=== PATIENT | female | born 1945 | race Caucasian/White ===

== ENCOUNTER 2016-11-28 17:53 | Inpatient (IN) | payer MEDICARE ==
[~2016-11-28] VITALS: Ht 162.6 cm; Wt 96.8 kg
[2016-11-28 17:56] VITALS: BP 151/98; PULSE 83; RESP 16; TEMP 98.7; O2SAT 94
[2016-11-28] MEDS ORDERED: FISH1000 (18:11)
[2016-11-28] MEDS ORDERED: ASPI81CH CHEW (18:11)
[2016-11-28] MEDS ORDERED: POTA2.5T (18:11)
[2016-11-28] MEDS ORDERED: FURO20TA PO (18:11)
[2016-11-28] MEDS ORDERED: MULTTAB24 PO (18:11)
[2016-11-28] MEDS ORDERED: ETOD500T PO (18:11)
[2016-11-28] MEDS ORDERED: METO50TA PO (18:11)
[2016-11-28] MEDS ORDERED: CHOL5000 PO (18:11)
[2016-11-28] MEDS ORDERED: BENA25TA6 PO (18:11)
[2016-11-28] MEDS ORDERED: LACTATED RINGER'S 1000 ML INJ 1,000 ML IV ONE (18:15)
--- NOTE | 2016-11-28 18:15 | PD ---
HPI Chief Complaint: Musculoskeletal Complaint Time Seen by Provider: 18:10 Travel History International Travel<30 days: No Contact w/Intl Traveler<30days: No Traveled to known affect area: No History of Present Illness HPI Patient is a 71-year-old female who presents to emergency room for evaluation by hand surgery for left hand digit #5 infection. Patient reports that she woke up yesterday morning and noticed an swelling and pain to her left hand digit # 5. Patient was seen at urgent care center this morning, she was then seen by Dr. Jean hand surgery this afternoon and was told to go to the emergency room for an I&D. Dr. Jean will perform I&D at bedside. Patient reports that she is currently on antibiotics. Tetanus is not up to date. PFSH Past Medical History Arthritis: Yes Cancer: Yes (BREAST ) Hypertension: Yes Social History Alcohol Use: Yes Tobacco Use: No Substance Use: No Allergies-Medications (Allergen,Severity, Reaction): Coded Allergies: Keflex (Verified Allergy, Severe, SYNCOPE, 11/28/16) Penicillin (Verified Allergy, Severe, RASH, 11/28/16) Sulfamethoxazole (Verified Allergy, Severe, SYNCOPE, 11/28/16) Triamterene (Verified Allergy, Severe, SYNCOPE, 11/28/16) Reported Meds & Prescriptions Reported Meds & Active Scripts Active Reported Aspirin 81 Mg Chew 81 Mg CHEW DAILY Benadryl Allergy (Diphenhydramine HCl) 25 Mg Tablet 1 Tab PO DAILY Furosemide 20 Mg Tab 20 Mg PO DAILY Etodolac 500 Mg Tab 1 Tab PO DAILY Metoprolol Tartrate 50 Mg Tab 50 Mg PO DAILY Vitamin D3 (Cholecalciferol) 5,000 Unit Cap 5,000 Units PO DAILY Potassium Gluconate 550 Mg Tab Fish Oil ([place]-3 Fatty Acids) 1,000 Mg Cap Multi For Her (Multiple Vitamins W/ Minerals) 1 Tab Tab 1 Tab PO DAILY Review of Systems General / Constitutional: No: Fever Eyes: No: Visual changes HENT: No: Headaches Cardiovascular: No: Chest Pain or Discomfort Respiratory: No: Shortness of Breath Gastrointestinal: No: Abdominal Pain Genitourinary: No: Dysuria Musculoskeletal: No: Pain Skin: Positive Other (left finger hand infection), No Rash Neurologic: No: Weakness Psychiatric: No: Depression Endocrine: No: Polydipsia Hematologic/Lymphatic: No: Easy Bruising Physical Exam Narrative GENERAL: Well-nourished, well-developed patient. SKIN: Focused skin assessment warm/dry. HEAD: Normocephalic. EYES: No scleral icterus. No injection or drainage. NECK: Supple, trachea midline. No JVD or lymphadenopathy. CARDIOVASCULAR: Regular rate and rhythm without murmurs, gallops, or rubs. RESPIRATORY: Breath sounds equal bilaterally. No accessory muscle use. GASTROINTESTINAL: Abdomen soft, non-tender, nondistended. MUSCULOSKELETAL: No cyanosis, or edema. left hand: patient with infection/ abscess to left hand digit #5 dorsal surface of digit #5 BACK: Nontender without obvious deformity. No CVA tenderness. Data Data Last Documented VS Vital Signs Date Time Temp Pulse Resp B/P Pulse Ox O2 Delivery O2 Flow Rate FiO2 11/28/16 17:56 98.7 83 16 151/98 94 Orders Iv Access Insert/Monitor (11/28/16 18:15) Tetanus/Diphtheria Tox Adult (Tetanus/Di (11/28/16 18:30) Lidocaine 2% Inj (Xylocaine 2% Inj) (11/28/16 18:47) Basic Metabolic Panel (Bmp) (11/28/16 18:58) Complete Blood Count With Diff (11/28/16 18:58) Admit Order (Ed Use Only) (11/28/16 18:58) MDM Medical Decision Making Medical Screen Exam Complete: Yes Emergency Medical Condition: Yes Interpretation(s) Vital Signs Date Time Temp Pulse Resp B/P Pulse Ox O2 Delivery O2 Flow Rate FiO2 11/28/16 17:56 98.7 83 16 151/98 94 Differential Diagnosis left hand digit #5 infection/abscess Narrative Course Patient is a 71 year old female with left hand digit #5 infection/abscess - patient was sent to the ER by Dr. Jean who will meet patient and perform I&D. Patient is currently on antibiotics - tetanus is not up to date, will update tetanus Dr. Jean was notified once patient arrived to ER Dr. Jean in ER performing I&D, request cbc, bmp, request admission for 23 hour observation over night Diagnosis Primary Impression: Infected finger Admitting Information Admitting Physician Requests: Observation Jennifer López DO Nov 28, 2016 18:15
[2016-11-28] MEDS ORDERED: TETANUS/DIPHTHERIA TOXOID ADULT 0.5 ML VIAL IM ONE (18:30)
[2016-11-28] MEDS ORDERED: LIDOCAINE HCL 2% 50 ML VIAL ONE (18:47)
[2016-11-28] MEDS ORDERED: LACTATED RINGER'S 1000 ML INJ 500 ML IV SCH (19:30)
[2016-11-28 19:40] VITALS: BP 148/79; PULSE 87; RESP 16; O2SAT 99
[2016-11-28] MEDS ORDERED: VANCOMYCIN INJ 1,000 MG in SODIUM CHLOR 0.9% 250 ML INJ 250 ML IV SCH (19:45)
[2016-11-28] MEDS ORDERED: Vancomycin Consult Pharmacy 1 EA OTHER SCH (19:45)
[2016-11-28] MEDS ORDERED: ACETAMINOPHEN/HYDROcodone 325 MG/5 MG TAB PO PRN (19:45)
[2016-11-28 19:50] LABS: AUTOMATED NEUTROPHIL # 3.7 TH/MM3 (1.8-7.7); BASOPHIL % 0.4 % (0.0-2.0); EOSINOPHIL # 0.3 TH/MM3 (0-0.4); EOSINOPHIL % 4.1 % (0.0-4.0); HEMATOCRIT 39.7 % (35.0-46.0); HEMO FLAGS DIFF FINAL; LYMPH % 26.9 % (9.0-44.0); LYMPHOCYTE # 1.7 TH/MM3 (1.0-4.8); MEAN CELL VOLUME 87.5 FL (80.0-100.0); MEAN CORPUSCULAR HEMOGLOBIN 29.5 PG (27.0-34.0); MEAN CORPUSCULAR HGB CONC 33.8 % (32.0-36.0); MONO % 8.9 % (0.0-8.0); NEUT % 59.7 % (16.0-70.0); PLATELET COUNT 179 TH/MM3 (150-450); RED BLOOD COUNT 4.53 MIL/MM3 (4.00-5.30); RED CELL DISTRIBUTION WIDTH 15.1 % (11.6-17.2); WHITE BLOOD COUNT 6.3 TH/MM3 (4.0-11.0)
[2016-11-28 19:51] LABS: POTASSIUM 3.9 MEQ/L (3.5-5.1)
[2016-11-28] MEDS: ACETAMINOPHEN/HYDROcodone 325 MG/5 MG TAB PO PRN (19:53)
[2016-11-28 19:54] LABS: BICARBONATE 29.3 MEQ/L (21.0-32.0)
[2016-11-28] MEDS ORDERED: VANCOMYCIN INJ 1,000 MG in SODIUM CHLOR 0.9% 250 ML INJ 250 ML IV ONE (20:00)
[2016-11-28] MEDS: LEVOFLOXACIN 500 MG TAB PO SCH (20:33)
[2016-11-28 20:40] VITALS: BP 154/87; PULSE 78; RESP 16; O2SAT 99
[2016-11-29] VITALS: BP 158/86; PULSE 79; RESP 18; TEMP 97.5; O2SAT 74; O2SAT 94
[2016-11-29] MEDS: LACTATED RINGER'S 1000 ML INJ 1,000 ML IV SCH ×3 (05:34→22:38)
[2016-11-29] MEDS: ACETAMINOPHEN/HYDROcodone 325 MG/5 MG TAB PO PRN ×2 (06:51→17:12)
[2016-11-29 08:00] VITALS: BP 181/101; PULSE 72; RESP 16; TEMP 97.5; O2SAT 95
[2016-11-29] MEDS: LEVOFLOXACIN 500 MG TAB PO SCH (08:12)
[2016-11-29] MEDS: FUROSEMIDE 20 MG TAB PO SCH (08:12)
[2016-11-29] MEDS: METOPROLOL TARTRATE 50 MG TAB PO SCH (08:12)
[2016-11-29] MEDS: VANCOMYCIN 1,000 MG/NS 250 ML IV SCH ×4 (08:13→22:33)
[2016-11-29] MEDS: POTASSIUM CHLORIDE 10 MEQ CONTROLLED RELEASE TAB PO SCH (08:13)
[2016-11-29] MEDS: CHOLECALCIFEROL (VIT D3) 5000 UNIT CAP PO SCH (08:28)
[2016-11-29 12:00] VITALS: BP 166/87; PULSE 64; RESP 16; TEMP 97.9; O2SAT 95
--- NOTE | 2016-11-29 13:05 | MP ---
cc: SAVAGE HOPSON M.D. DATE OF PROCEDURE 11/28/2016 PREOPERATIVE DIAGNOSIS Left small finger infection, probably septic distal interphalangeal joint with mucous cyst. POSTOPERATIVE DIAGNOSIS Left small finger infection, probably septic distal interphalangeal joint with mucous cyst. PROCEDURE Incision and drainage, irrigation debridement left small finger distal interphalangeal joint. ANESTHESIA Local. TOURNIQUET TIME Approximately 20 minutes. INDICATIONS Ms. Sahni is a pleasant 71-year-old lady with symptomatic infection of her left small finger, appears to have a mucous cyst on the dorsum of the finger at the PIP joint with infection. She is in the [place] ED and gives written consent. PROCEDURE Proper written consent was obtained. Sterile prep of the base of the left small finger with alcohol and I did a digital block of the left small finger with 10 mL of 2% lidocaine. Her left hand and forearm were prepped and draped in the usual sterile fashion with Hibiclens and a sterile finger glove placed at the base of left small finger where it remained as a tourniquet. An oblique incision was made over the dorsal ulnar aspect of the left small finger DIP joint and thick skin flaps were elevated. The joint did appear to have some hypertrophic synovium and but no obvious pus. I opened the joint and debrided the redundant synovium with the rongeur and cultured the joint and debrided the subcutaneous area where there appeared to be a cyst with the rongeur. I irrigated the wound and joint thoroughly with 1 liter of normal saline and closed this with one 5-0 nylon suture proximally and then packed open the joint in the subcutaneous areas with a 1/4-inch Iodoform gauze. A bulky finger dressing was applied with 4x4s and 3-inch Bradley with the tourniquet being removed after approximately 20 minutes. The finger pinked up immediately. The patient remained in the emergency room and will be admitted for IV antibiotics and we will obtain infectious disease consultation. MD GRIFFIN Christianson/SSB /7:53 PM /1:00 PM
[2016-11-29 16:00] VITALS: BP 142/77; PULSE 66; RESP 16; TEMP 97.2; O2SAT 95
--- NOTE | 2016-11-29 16:41 | MB ---
cc: NAJMA FAM MD DATE OF CONSULTATION 11/29/[address] Jean REASON FOR CONSULTATION Infected left fifth finger HISTORY OF PRESENT ILLNESS This is a 71-year-old white female who presented to the emergency department after she developed swelling and pain at the left fifth finger. The patient states that she woke up and suddenly noticed swelling and she developed pain of the left digit number five. The patient states that a couple days prior she felt a little pimple on the dorsum of digit number five which she scraped with her other hand. She was evaluated in the emergency department by Dr. Jean of hand surgery and she was taken to surgery for incision and debridement of her finger. The report of the procedure noted that the joint did appear to have some hypertrophic synovium but no obvious pus. Culture was taken from the wound. The patient has no acute complaints. She denies nausea, vomiting, fever, chills or shortness of breath. She is ALLERGIC TO MULTIPLE ANTIBIOTICS. She is currently on intravenous vancomycin and p.o. Levaquin. PAST MEDICAL HISTORY 1. Arthritis, 2. Hypertension, 3. History of breast cancer 4. History of venostasis ulcers ALLERGIES SULFAMETHOXAZOLE PENICILLIN KEFLEX TRIAMTERENE MEDICATIONS 1. Vancomycin. 2. Levaquin 3. Vitamin D3. 4. Potassium. 5. Lasix. 6. Lopressor. 7. Victoria five p.r.n. SOCIAL HISTORY No tobacco. The patient drinks alcohol socially. No illicit drugs. FAMILY HISTORY Noncontributory. REVIEW OF SYSTEMS Negative on 10-point review. PHYSICAL EXAMINATION GENERAL: This is a moderately obese female who is in no acute distress. She is awake, alert and oriented. VITAL SIGNS: signs: Temperature 97.9, BP 166/87, respirations 16, heart rate 64. HEENT: Head is atraumatic. Extraocular movements grossly intact, pupils reactive to light. No icterus. No conjunctival erythema. Oropharynx moist mucosa without lesions. No thrush. NECK: Supple without adenopathy. LUNGS: Clear breath sounds HEART: Regular S1-S2 without murmurs, rubs or gallops. ABDOMEN: Bowel sounds present, soft, no tenderness appreciated. RECTAL: Not performed. EXTREMITIES: The left fifth finger is wrapped in a surgical dressing. There is obvious visible swelling. The remaining digits are intact. There is mild edema at the base of the left digit number five. NEUROLOGIC: No gross focal findings. PSYCHIATRIC: The patient is calm and cooperative. LABORATORY DATA WBC 6.3, platelet count 179, hemoglobin 13.4, creatinine 0.68, estimated GFR 86, sodium 141 IMPRESSION 1. Left fifth digit infection and septic DIP joint. 2. Multiple antibiotic allergies. RECOMMENDATIONS 1. Monitor wound cultures 2. Continue vancomycin 3. Continue Levaquin. Antibiotic determination will depend upon the culture results. Because of her allergies to several antibiotics, if she has MRSA she will require treatment with IV vancomycin. If she has gram-negative bacteria that is sensitive to Levaquin, we can treat her with oral Levaquin. However, we will need to get results of the cultures before making the final determination. Thank you this consultation. The patient's progress will be monitored. Further recommendations will be given upon followup. She will need at least a 2-week course of antibiotics. Najma Fam MD FD/ /3:34 PM /4:37 PM
--- NOTE | 2016-11-29 17:26 | PD.ORT.PN ---
Subjective Post Op Day #: 1 Pain Scale: minimal Subjective Remarks feels alot better today--minimal pain Range of Motion able to move finger left small with minimal pain today Objective Vitals Vital Signs Date Time Temp Pulse Resp B/P Pulse Ox O2 Delivery O2 Flow Rate FiO2 11/29/16 16:00 97.2 66 16 142/77 95 11/29/16 12:00 97.9 64 16 166/87 95 11/29/16 08:00 97.5 72 16 181/101 95 11/29/16 00:00 97.5 79 18 158/86 74 11/29/16 00:00 97.5 79 18 158/86 94 11/28/16 20:40 78 16 154/87 99 Room Air 11/28/16 19:40 87 16 148/79 99 Room Air 11/28/16 17:56 98.7 83 16 151/98 94 I/O 11/28/16 11/28/16 11/28/16 11/29/16 11/29/16 11/29/16 07:00 15:00 23:00 07:00 15:00 23:00 Intake Total 180 ml 840 ml Balance 180 ml 840 ml Intake Oral 180 ml 840 ml # Voids 1 1 3 # Bowel Movements 0 Result Diagram: 11/28/16192911/28/161929 Other Results wound culture negative thus far Objective Remarks left small finger with erythema dorsal to the DIP joint, and wound clean and no pus on the packing. No other cellulitis--resolved rest of the finger and hand swelling markedly improved Assessment & Plan Ortho Post Op Day #: 1 Problem List: (1) Septic arthritis of interphalangeal joint of finger of left hand Assessment and Plan continue IV antibiotics appreciate ID consult and await cultures and recs Wound cleaned with NS and repacked with 1/4" plain packing and wrapped with sterile 4x4s, 3" Bradley continue elevating check cultures and change dressing tomorrow Jessi Jean MD Nov 29, 2016 17:26
[2016-11-29] MEDS ORDERED: MUPIROCIN 2% OINT 22 GM TUBE TOPICAL PRN (17:30)
[2016-11-29 21:17] VITALS: BP 150/79; PULSE 70; RESP 18; TEMP 98.8; O2SAT 96
[2016-11-30 01:10] VITALS: BP 164/96; PULSE 68; RESP 16; TEMP 98.5; O2SAT 97
[2016-11-30] MEDS ORDERED: PHARMACY ORDERED LAB ONE ×2 (07:45→19:45)
[2016-11-30 08:00] VITALS: BP 174/94; PULSE 72; RESP 18; TEMP 96; O2SAT 95
[2016-11-30] MEDS: VANCOMYCIN 1,000 MG/NS 250 ML IV SCH ×4 (08:00→21:14)
[2016-11-30] MEDS: LEVOFLOXACIN 500 MG TAB PO SCH (08:38)
[2016-11-30] MEDS: METOPROLOL TARTRATE 50 MG TAB PO SCH (08:38)
[2016-11-30] MEDS: FUROSEMIDE 20 MG TAB PO SCH (08:39)
[2016-11-30] MEDS: CHOLECALCIFEROL (VIT D3) 5000 UNIT CAP PO SCH (08:39)
[2016-11-30] MEDS: POTASSIUM CHLORIDE 10 MEQ CONTROLLED RELEASE TAB PO SCH (08:39)
[2016-11-30] MEDS: LACTATED RINGER'S 1000 ML INJ 1,000 ML IV SCH (08:40)
[2016-11-30 12:00] VITALS: BP 138/80; PULSE 67; RESP 18; TEMP 98.8; O2SAT 93
[2016-11-30 16:00] VITALS: BP 138/75; PULSE 68; RESP 18; TEMP 97; O2SAT 92
--- NOTE | 2016-11-30 17:08 | PD.ORT.PN ---
Subjective Post Op Day #: 2 Pain Scale: 2 Subjective Remarks feels alot better today--minimal pain with AROM of the left small finger Objective Vitals Vital Signs Date Time Temp Pulse Resp B/P Pulse Ox O2 Delivery O2 Flow Rate FiO2 11/30/16 16:00 97.0 68 18 138/75 92 11/30/16 12:00 98.8 67 18 138/80 93 11/30/16 08:00 96.0 72 18 174/94 95 11/30/16 05:34 11/30/16 01:10 98.5 68 16 164/96 97 11/29/16 21:17 98.8 70 18 150/79 96 I/O 11/29/16 11/29/16 11/29/16 11/30/16 11/30/16 11/30/16 07:00 15:00 23:00 07:00 15:00 23:00 Intake Total 180 ml 840 ml 1170 ml Balance 180 ml 840 ml 1170 ml Intake Oral 180 ml 840 ml 1170 ml # Voids 1 3 2 6 # Bowel Movements 0 Result Diagram: 11/28/16 1930 11/30/16 0515 Other Results wound culture left small finger growing rare gram positive cocci Objective Remarks left small finger with erythema dorsal to the DIP joint, and wound clean and no pus on the packing. No other cellulitis--of the rest of the left small finger or hand swelling markedly improved and only has swelling at the dorsal left small finger DIP joint Able to flex the finger with minimal pain at the DIP joint now. Assessment & Plan Ortho Post Op Day #: 2 Problem List: (1) Septic arthritis of interphalangeal joint of finger of left hand Assessment and Plan continue IV antibiotics appreciate ID consult and await final cultures and final recs regarding length and route of antibiotics Wound cleaned with NS and redressed with Bactroban ointment, sterile 4x4s, 3" Bradley continue elevating check cultures and change dressing tomorrow change to full admission and hopeful for discharge by tomorrow or 12/02, depending on the requirement of the antibiotic regiment Patient aware and wishes to go home as soon as she safely can Jessi Jean MD Nov 30, 2016 17:08
[2016-11-30 20:00] VITALS: BP 150/72; PULSE 75; RESP 20; TEMP 97.4; O2SAT 95
[2016-12-01] VITALS: BP 151/82; PULSE 73; RESP 18; TEMP 97.4; O2SAT 95
[2016-12-01 08:00] VITALS: BP 167/72; PULSE 73; RESP 18; TEMP 98.1; O2SAT 96
[2016-12-01] MEDS: CHOLECALCIFEROL (VIT D3) 5000 UNIT CAP PO SCH (09:00)
[2016-12-01] MEDS: VANCOMYCIN 1,000 MG/NS 250 ML IV SCH ×4 (09:51→20:21)
[2016-12-01] MEDS: LEVOFLOXACIN 500 MG TAB PO SCH (09:51)
[2016-12-01] MEDS: FUROSEMIDE 20 MG TAB PO SCH (09:51)
[2016-12-01] MEDS: METOPROLOL TARTRATE 50 MG TAB PO SCH (09:51)
[2016-12-01] MEDS: POTASSIUM CHLORIDE 10 MEQ CONTROLLED RELEASE TAB PO SCH (09:51)
[2016-12-01 12:00] VITALS: BP 151/85; PULSE 68; RESP 18; TEMP 98.5; O2SAT 96
--- NOTE | 2016-12-01 15:27 | PD.ORT.PN ---
Subjective Post Op Day #: 3 Pain Scale: 1 Subjective Remarks feels alot better again today--minimal pain with AROM of the left small finger Range of Motion has almost full AROM of the left small finger with minimal pain Objective Vitals Vital Signs Date Time Temp Pulse Resp B/P Pulse Ox O2 Delivery O2 Flow Rate FiO2 12/01/16 12:00 98.5 68 18 151/85 96 12/01/16 08:00 98.1 73 18 167/72 96 12/01/16 05:40 12/01/16 00:00 97.4 73 18 151/82 95 12/01/16 00:00 97.4 73 18 151/82 95 11/30/16 20:00 97.4 75 20 150/72 95 11/30/16 16:00 97.0 68 18 138/75 92 I/O 11/30/16 11/30/16 11/30/16 12/01/16 12/01/16 12/01/16 07:00 15:00 23:00 07:00 15:00 23:00 Intake Total 1170 ml 480 ml Balance 1170 ml 480 ml Intake Oral 1170 ml 480 ml # Voids 2 6 8 5 # Bowel Movements 3 Result Diagram: 11/28/16 19311/30/16 0515 Other Results wound culture rare staph aureus, but no MICs yet Objective Remarks left small finger with erythema dorsal to the DIP joint only, and wound clean and no necrotic tissue No other cellulitis--of the rest of the left small finger or hand swelling markedly improved and only has swelling at the dorsal left small finger DIP joint Able to flex the finger fully with minimal pain at the DIP joint now. Wound starting to close and filling in at the base Assessment & Plan Ortho Post Op Day #: 3 Problem List: (1) Septic arthritis of interphalangeal joint of finger of left hand Assessment and Plan continue IV antibiotics appreciate ID consult and await MICs and final recs regarding length and route of antibiotics Wound cleaned with NS and redressed with Bactroban ointment, sterile 4x4s, 3" Bradley continue elevating check MICs and change dressing tomorrow--hopeful for discharge by tomorrow Patient aware and wishes to go home as soon as she safely can Jessi Jean MD Dec 01, 2016 15:27
[2016-12-01 16:00] VITALS: BP 145/79; PULSE 72; RESP 18; TEMP 99.2; O2SAT 96
[2016-12-01 20:00] VITALS: BP 144/73; PULSE 79; RESP 20; TEMP 98.9; O2SAT 96
[2016-12-02] VITALS: BP 143/85; PULSE 73; RESP 20; TEMP 98.2; O2SAT 96
[2016-12-02 08:37] VITALS: BP 158/90; PULSE 68; RESP 19; TEMP 96.4; O2SAT 96
[2016-12-02] MEDS: CHOLECALCIFEROL (VIT D3) 5000 UNIT CAP PO SCH (09:00)
[2016-12-02] MEDS: VANCOMYCIN 1,000 MG/NS 250 ML IV SCH ×2 (09:18)
[2016-12-02] MEDS: POTASSIUM CHLORIDE 10 MEQ CONTROLLED RELEASE TAB PO SCH (09:18)
[2016-12-02] MEDS: METOPROLOL TARTRATE 50 MG TAB PO SCH (09:18)
[2016-12-02] MEDS: LEVOFLOXACIN 500 MG TAB PO SCH (09:19)
[2016-12-02] MEDS: FUROSEMIDE 20 MG TAB PO SCH (09:19)
[2016-12-02 12:25] VITALS: BP 118/74; PULSE 70; RESP 19; TEMP 96.9; O2SAT 95
[2016-12-02] MEDS ORDERED: DOXYCYCLINE HYCLATE 100 MG TAB PO SCH (21:00)
[2016-12-04] MEDS ORDERED: VANCOMYCIN TROUGH ONE (07:45)
== END 2016-12-02 15:11 | disposition home or self-care (01) | DRG 514 ==
LOC: PHED 17:53 → PHEDA 18:59 → PH3A 21:00 → OBSVTOIN 11-30 16:46
PROVIDERS: ADMIT Orthopaedic Surgery Hand Surgery; ATTEND Orthopaedic Surgery Hand Surgery
PROC: 0RBX0ZZ Excision of Left Finger Phalangeal Joint, Open Approach (ICD-10-PCS; principal; 2016-11-30)
DX: M00.042 Staphylococcal arthritis, left hand (principal); B95.61 Methicillin susceptible Staphylococcus aureus infection as the cause of diseases classified elsewhere; I10 Essential (primary) hypertension; Z85.3 Personal history of malignant neoplasm of breast; M25.842 Other specified joint disorders, left hand
CPT/HCPCS: 80048; 80202; 82565; 85025; 86403; 87070; 87147; 87186; 87205; 90714; 99285; G0378; J3370; J7050; J7120